=== PATIENT | female | born 1945 | race Caucasian/White ===

== ENCOUNTER 2021-09-17 12:58 | Emergency (ER) | payer MEDICARE, OTHER, SELFPAY ==
--- NOTE | ~2021-09-17 | XR_ITS ---
EXAMINATION: XR HAND, LEFT CLINICAL INFORMATION: Trauma. Pain and swelling. COMPARISON: None TECHNIQUE: PA, lateral, and oblique views of the left hand. FINDINGS: Bone alignment is normal. No fracture or dislocation is seen. There is soft tissue swelling over the metacarpal heads/MCP joints. There is mild arthritis at the first CHCF joint. XR/XR hand LT min 3V IMPRESSION: Soft tissue swelling over the metacarpal head/MCP joints. Mild arthritis at the first CHCF joint.
[2021-09-17 13:06] VITALS: BP 140/62; PULSE 81; RESP 18; TEMP 36.6; O2SAT 98; BMI 19.2
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
== END 2021-09-17 15:49 | disposition home or self-care (01) ==
LOC: HO.ED 15:43
PROVIDERS: Emergency Provider Emergency Medicine; PCP Internal Medicine
DX: S60.222A Contusion of left hand, initial encounter (principal); Y29.XXXA Contact with blunt object, undetermined intent, initial encounter; Y93.9 Activity, unspecified; Y92.9 Unspecified place or not applicable; Y99.9 Unspecified external cause status
CPT/HCPCS: 73130; 99282

== ENCOUNTER 2023-08-20 11:03 | Outpatient (AMB) | payer MEDICARE, OTHER, SELFPAY ==
--- NOTE | 2023-08-20 11:14 | HO.SPINEOV ---
Intake Visit Reasons: myelopathic Intake Note: Ms. Patel is here today c/o neck/shoulder pain. 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 She is a very nice 77-year-old female with history of AFib on Xarelto, who presents with 1 month or more of severe right arm pain going down into her hand as well as balance issues. She does not report any neck pain. She does report some issues with fine motor movements of her hands not being quite as good. She underwent an MRI after series of x-rays and this showed severe compression of her spinal cord at C5-6 and C6-7. She was sent to our office urgently for evaluation. PMH: She has a history of coronary disease and underwent a triple bypass in 2020. She did well after that surgery it improved her symptoms of shortness of breath. She has been followed by postoperatively. Her last echocardiogram showed that her EF was 60-65%, with normal left ventricular wall thickness and normal right ventricular wall thickness. She had a mildly dilated left and right atrium. Mild mitral regurgitation and moderate tricuspid regurgitation. PA pressures were normal. She has a history of AFib and SVT. She is managed on metoprolol, digoxin. She had a left carotid endarterectomy done about 2 years ago and did well after that. Her [facility] records state that she has COPD, she did quit smoking about 8 years ago but does not need any inhalers and has had no shortness of breath. History of osteoporosis. Social hx: She quit smoking about 8 years ago, she occasionally will drink of beer or smoke a joint with her friends. Medications: Tylenol, Xarelto, metoprolol, gabapentin, digoxin, atorvastatin, amlodipine, calcium, vitamin-D, baby aspirin Allergies: Denies any drug allergies Physical exam: She is awake alert oriented no acute distress, she has weakness of both of her hands which I would rate as 4-5 and weakness of both iliopsoas which I would rate as 4-5. The rest of her motor examination is normal. She is diffusely hyperreflexic with Katlyn sign. Tandem gait walking reveals she is very unsteady. Imaging review: Cervical MRI done at [facility] shows severely collapsed disc at C5-6 and C6-7 with severe spinal cord compression with cord signal change at these levels. Impression: [age]-year-old female presents to the office today for evaluation of severe spinal cord compression at C5-6 and C6-7 in the setting of right arm pain, hand weakness and gait instability. I showed her her imaging, had a lengthy discussion with her about the fact that this is something that should be treated with surgery. Typically Dr. Chao would choose an anterior cervical approach, doing anterior cervical fusion at both C5-6 and C6-7. She understands that the timing of the surgeries important because any progression of symptoms could be irreversible. I am going to review her imaging with him and get back to her with a final plan. We talked about the fact that there may already be spinal cord damage and that this current set of symptoms she has maybe permanent but we would expect there would be some improvement after surgery hopefully. The 1st objective would be to prevent her from getting worse and losing any functional abilities. She would need to be off his Xarelto for 3 days before surgery and 3 days afterwards. Obviously there is some small risk for stroke. She would also need to be off her baby aspirin for 1 week. She will talk to Dr. Pradhan about getting a clearance note. Pt was given risk and benefits of surgery including but not limited to infection, hematoma , nerve injury,durotomy, weakness,bowel/bladder injury, persistent pain, dysphagia, vocal hoarseness as well as the option to continue with conservative treatment and patient wishes to proceed with surgery. Pt is aware they should stop their motrin, aspirin 7 days prior to surgery. All questions were answered to the best of our ability. If there is anything about this patients medical history that we have overlooked or concerns you have about us proceeding with surgery we would appreciate any input you can offer. Thank you for allowing us to care for your patient. The total time spent with this visit with this patient was 45 minutes reviewing history, physical exam, cervical imaging review, and implementation of treatment plan or further diagnostic testing Mynor Chao MD,PhD [facility] Coding Level of Care Code New Pt Level 4 (62213) Diagnoses Cervical myelopathy G95.9
== END 2023-08-20 11:42 | disposition home or self-care (01) ==
PROVIDERS: PCP Internal Medicine; Referring Provider Physician Assistant; Visit Provider Physician Assistant
DX: G95.9 Disease of spinal cord, unspecified (principal)
CPT/HCPCS: 99204

== ENCOUNTER → 2023-08-20 11:03 | Outpatient (BNVA) | payer MEDICARE, OTHER, SELFPAY | PROVIDERS: PCP Internal Medicine; Visit Provider Physician Assistant | DX: G95.20 Unspecified cord compression (principal) | CPT/HCPCS: 99202 ==

== ENCOUNTER 2023-10-25 14:47 | Outpatient (AMB) | payer MEDICARE, OTHER, SELFPAY ==
--- NOTE | 2023-10-25 14:53 | A.SPINEOV_ITS ---
Intake Visit Reasons: Discuss Surgery Intake Note: Ms. Patel is here today to discuss surgery. 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 She is scheduled to undergo an anterior diskectomy and fusion C5-6 and C6-7 on 10/30/2023. She is cleared for surgery by primary care physician. He did notice anemia for which he will undergo further testing but this should not interfere with the planned surgery. We went over the procedure and expected postoperative course. All questions were answered satisfactorily. Kurt Chao MD, PhD Spine Fellowship Trained Neurosurgeon Director, [facility] Coding Level of Care Code Est Pt Level 2 (26348) Diagnoses Cervical myelopathy G95.9
== END 2023-10-25 15:15 | disposition home or self-care (01) ==
PROVIDERS: PCP Internal Medicine; Visit Provider Neurological Surgery
DX: G95.9 Disease of spinal cord, unspecified (principal)
CPT/HCPCS: 99212

== ENCOUNTER → 2023-10-25 14:47 | Outpatient (BNVA) | payer MEDICARE, OTHER, SELFPAY | PROVIDERS: PCP Internal Medicine; Visit Provider Neurological Surgery | DX: G95.9 Disease of spinal cord, unspecified (principal) | CPT/HCPCS: 99212 ==

== ENCOUNTER 2023-10-30 07:39 | Day surgery (SDC) | payer MEDICARE, OTHER, SELFPAY ==
[2023-10-16 10:08] VITALS: BMI 16.8
[2023-10-16 10:17] VITALS: BP 169/73; PULSE 47; RESP 16; O2SAT 100
--- NOTE | 2023-10-16 10:37 | P.CONAN_ITS ---
Documented by User: Bernie See NP 10/29/23 08:59 HPI - Anesthesia Eval Consult details Narrative: 77yo F for C5-6,C6-7 Ant Cerv Discectomy w/ fusion with plate PCP defers to cardiology for preop optimization Optimized per cardiology No recent illness Some palps with exertion. No CP or LOMELI Afib. Xarelto CAD with NH s/p CABG x 3 2020 s/p L CEA 2021 Asthma/COPD. Stable without inhalers Post nasal drip PMFSH Active Problems Active Problems: All Active Problems Cervical myelopathy (Acute) Past Medical History Medical History Wears dentures Recent bereavement Spinal stenosis Arthritis History of blood transfusion History of cardioversion Hx of myocardial infarction [place] (hard of hearing) COPD (chronic obstructive pulmonary disease) SVT (supraventricular tachycardia) Hearing loss HFrEF (heart failure with reduced ejection fraction) PAF (paroxysmal atrial fibrillation) Osteoporosis Asthma HTN (hypertension) PVD (peripheral vascular disease) Family History Family history of problems with anesthesia: No Surgical History Surgical History Hx of bilateral cataract extraction History of bunionectomy of right great toe History of left-sided carotid endarterectomy (~2021) Hx of CABG (~2020) S/P EMMETT-BSO (total abdominal hysterectomy and bilateral salpingo-oophorectomy) Hx of colonoscopy Hx of breast biopsy History of Problems with Anesthesia: No Social History Social History Household Members: None Housing: House Are you a primary specialist wound care to a significant other at home: No Do you presently have visiting nurse or other home services: No Patient Tobacco Use Status: Former Tobacco user Tobacco use type: Cigarette Smoked in Last 30 Days: No Use of substances other than those prescribed or required for medical reasons: No Have you been hit, kicked, punched, or otherwise hurt by someone within the past year? If so, by whom?: No Are you DNR?: No Advance Directives: No Advance Directives Information Provided: Yes Advance Directives on File: No Recently lost weight without trying: Yes How much weight loss: 2-13 pounds Eating poorly because of decreased appetite: No Nutrition screen score: 3 Nutrition Risks: No Nutritional Risk Poor oral hygiene: No Meds Allergies Allergy/AdvReac Type Severity Reaction Status Date / Time No Known Allergies Allergy Verified 10/30/23 07:55 Home Medications ?Medication ?Instructions ?Recorded ?Confirmed ?Last Taken ?Type amlodipine 5 mg tablet 5 mg PO DAILY 10/15/23 10/15/23 10/30/23 05:30 History aspirin 81 mg chewable tablet 81 mg PO DAILY 10/15/23 10/15/23 10/23/23 History atorvastatin 40 mg tablet 40 mg PO BEDTIME 10/15/23 10/15/23 Unknown History cholecalciferol (vitamin D3) 50 50 mcg PO DAILY 10/15/23 10/15/23 Unknown History mcg (2,000 unit) capsule (Vitamin D3) diclofenac sodium 1 % topical gel 1 g topical BID 10/15/23 10/15/23 Unknown History digoxin 125 mcg (0.125 mg) tablet 125 mcg PO DAILY 10/15/23 10/15/23 10/30/23 05:30 History estradiol 0.01% (0.1 mg/gram) 1 g vaginal 3XW 10/15/23 10/15/23 Unknown History vaginal cream gabapentin 100 mg capsule 100 mg PO TID 10/15/23 10/15/23 10/30/23 05:30 History metoprolol succinate 50 mg 50 mg PO BID 10/15/23 10/15/23 10/30/23 05:30 History tablet,extended release 24 hr (Toprol XL) rivaroxaban 20 mg tablet (Xarelto) 20 mg PO DAILY 10/15/23 10/15/23 10/26/23 History Exam Height,Weight and Vital Signs: Height 5 ft 2 in Weight 41.6 kg Last Vital Signs Pulse 47 L 10/16/23 10:17 Resp 16 10/16/23 10:17 BP 169/73 H 10/16/23 10:17 Pulse Ox 100 10/16/23 10:17 O2 Del Method Room Air 10/16/23 10:17 Pertinent Lab Results Pertinent Lab Results: CBC and BMP from outside facility 10/14/23 OK except low H&H Narrative Narrative: Testing per cardiology clearance note: EKG 10/2023 afib @ 62 RBBB LAD ECHO 05/2022 EF 60-65% Nml RV function LA mild dilated RA mod dilated Mild mitral regurg Mod tricuspid regurg with nm PASP No change from 2020 Airway Mallampati Class: II (Small mouth) TM Dist: >3cm Neck ROM: Limited Denture: Upper Loose/Missing/Broken Teeth: Yes (Lower teeth posts in situ) Heart: Raimundo, irreg Lungs: CTAB Assessment and Plan Assessment Anesthesia Assessment: Anesthesia Plan Discussed and PAT Visit Final Anesthetic Review Family History of Problems with Anesthesia: No History of Problems with Anesthesia: No Documented by User: Rufina Camacho MD 10/30/23 09:42 PMFSH Past Medical History Medical History Wears dentures Recent bereavement Spinal stenosis Arthritis History of blood transfusion History of cardioversion Hx of myocardial infarction [place] (hard of hearing) COPD (chronic obstructive pulmonary disease) SVT (supraventricular tachycardia) Hearing loss HFrEF (heart failure with reduced ejection fraction) PAF (paroxysmal atrial fibrillation) Osteoporosis Asthma HTN (hypertension) PVD (peripheral vascular disease) Surgical History Surgical History Hx of bilateral cataract extraction History of bunionectomy of right great toe History of left-sided carotid endarterectomy (~2021) Hx of CABG (~2020) S/P EMMETT-BSO (total abdominal hysterectomy and bilateral salpingo-oophorectomy) Hx of colonoscopy Hx of breast biopsy Social History Social History Household Members: None Housing: House Are you a primary specialist wound care to a significant other at home: No Do you presently have visiting nurse or other home services: No Patient Tobacco Use Status: Former Tobacco user Tobacco use type: Cigarette Smoked in Last 30 Days: No Use of substances other than those prescribed or required for medical reasons: No Have you been hit, kicked, punched, or otherwise hurt by someone within the past year? If so, by whom?: No Are you DNR?: No Advance Directives: No Advance Directives Information Provided: Yes Advance Directives on File: No Recently lost weight without trying: Yes How much weight loss: 2-13 pounds Eating poorly because of decreased appetite: No Nutrition screen score: 3 Nutrition Risks: No Nutritional Risk Poor oral hygiene: No Meds Allergies Allergy/AdvReac Type Severity Reaction Status Date / Time No Known Allergies Allergy Verified 10/30/23 07:55 Home Medications ?Medication ?Instructions ?Recorded ?Confirmed ?Last Taken ?Type amlodipine 5 mg tablet 5 mg PO DAILY 10/15/23 10/15/23 10/30/23 05:30 History aspirin 81 mg chewable tablet 81 mg PO DAILY 10/15/23 10/15/23 10/23/23 History atorvastatin 40 mg tablet 40 mg PO BEDTIME 10/15/23 10/15/23 Unknown History cholecalciferol (vitamin D3) 50 50 mcg PO DAILY 10/15/23 10/15/23 Unknown History mcg (2,000 unit) capsule (Vitamin D3) diclofenac sodium 1 % topical gel 1 g topical BID 10/15/23 10/15/23 Unknown History digoxin 125 mcg (0.125 mg) tablet 125 mcg PO DAILY 10/15/23 10/15/23 10/30/23 05:30 History estradiol 0.01% (0.1 mg/gram) 1 g vaginal 3XW 10/15/23 10/15/23 Unknown History vaginal cream gabapentin 100 mg capsule 100 mg PO TID 10/15/23 10/15/23 10/30/23 05:30 History metoprolol succinate 50 mg 50 mg PO BID 10/15/23 10/15/23 10/30/23 05:30 History tablet,extended release 24 hr (Toprol XL) rivaroxaban 20 mg tablet (Xarelto) 20 mg PO DAILY 10/15/23 10/15/23 10/26/23 History Assessment and Plan Final Anesthetic Review NPO: Yes ASA Class: III Final Preanesthetic Review: No Changes in Pt Med Stat, Meds/Allgs Chart Reviewed, Consent Obtained/Reviewed and Anes Risks/Benef Reviewed Patient Risk: Intermediate Procedure Risk: Intermediate Anesthetic Plan Anesthetic Plan: GA Disposition: Standard PACU
[2023-10-30] VITALS (9 sets, daily range): BP systolic 129–182; BP diastolic 49–90; PULSE 54–72; RESP 12–17; TEMP 36–36.8; O2SAT 95–100; BMI 16.5; BMI 18.7
--- NOTE | ~2023-10-30 | FL_ITS ---
CLINICAL INDICATION: None provided. FINDINGS: Technical assistance and equipment were provided by the Department of Radiology during intraoperative fluoroscopy for intraoperative ACDF. 2, limited fluoroscopic spot images are submitted. A radiologist was not present during the procedure. Images demonstrate anterior fixation and disc spacing devices at C5-C7. Vertebral body heights and alignment appear grossly maintained on this limited study. Multiple surgical clips project over the left neck. The images are available for review on PACS. TOTAL FLUOROSCOPY TIME: 5 seconds. DOSE AREA PRODUCT: 0.1 Gy-cm2 (menon-centimeter squared) FL/FL guidance in OR IMPRESSION: Technical assistance and equipment provided by the Department of Radiology during intraoperative fluoroscopy, as above. Please see operative report for further details. Electronically signed by: Juventino Fontaine MD 10/30/2023 07:00 PM EDT
--- OUTSIDE RECORDS SUMMARY | 2023-10-30 07:41 | XMS_ITS | Continuity of Care Document ---
Author Organization [facility] Card[facility] David alfie Address [address] [address]- Care Team Providers Care Veterinary Laboratory Diagnostician Name Role Phone Lorne BARKSDALE MD, Chris Laws Primary Care Physician Encounter [facility] Date(s): 06/23/20 - 07/23/20 [facility] Surgery [address] [facility] Room [address] [place] [id number] Allergies, Adverse Reactions, Alerts Substance Reaction Severity Status NKA Active Medications amLODIPine 5 mg oral tablet 5 mg, 1, tablet, By Mouth, Daily, # 90 tablet, Refills 3, Tot. Refills 3, Maintenance, 06/23/20 13:46:00 EDT, Route to Pharmacy Electronically, [facility] , Partial fill upon patient requestif the prescription is for a schedule II opioid lily... Start Date: 06/23/20 Status: Ordered Aspirin Tablet 81 mg, By Mouth, Daily, Refills 0, Maintenance, 06/14/20 10:56:00 EDT, Partial fill upon patient request if the prescription is for a schedule II opioid drug. Start Date: 06/14/20 Status: Ordered atorvastatin 40 mg oral tablet 1 tablet = 40 mg, By Mouth, Daily at bedtime, for 90 days, # 90 tablet, 3 Refills, Hard Stop 06/18/21 13:38:00 EDT, 06/23/20 13:38:00 EDT, Tablet, Partial fill upon patient request if the prescription is for a schedule II opioid drug. Start Date: 06/23/20 Stop Date: 06/18/21 Status: Ordered atorvastatin 40 mg oral tablet 1 tablet = 40 mg, By Mouth, Daily at bedtime, # 90 tablet, 3 Refills, Maintenance, 06/18/21 13:38:00 EDT, Tablet, [facility] , Partial fill upon patient request if the prescription is for a schedule II opioid drug., 157, cm, 06/23/20 10:57:00... Start Date: 06/18/21 Stop Date: 06/13/22 Status: Ordered digoxin 0.125 mg oral tablet 0.125 mg, By Mouth, Daily, # 90 tablet, Refills 3, Tot. Refills 3, Maintenance, 06/23/20 13:45:00 EDT, Route to Pharmacy Electronically, [facility], 157, cm, 06/23/20 10:57:00 EDT, Height, 50, kg, 08/06/18 15:37:00 EDT, Dry Weight Start Date: 06/23/20 Status: Ordered Fosamax 70 mg oral tablet 1 tablet = 70 mg, By Mouth, Every week, # 4 tablet, 0 Refills, Maintenance, 08/06/18 15:59:31 EDT, Tablet Start Date: 08/06/18 Status: Ordered metoprolol 25 mg oral tablet 25 mg, 1, tablet, By Mouth, Every 8 hours, for 90 days, # 270 tablet, Refills 3, Tot. Refills 3, Hard Stop 06/18/21 13:38:00 EDT, 06/23/20 13:38:00 EDT, Print Requisition, Partial fill upon patient request if the prescription is for a schedule II opio... Start Date: 06/23/20 Stop Date: 06/18/21 Status: Ordered metoprolol 25 mg oral tablet 25 mg, 1, tablet, By Mouth, Every 8 hours, # 270 tablet, Refills 3, Tot. Refills 3, Maintenance, 06/18/21 13:38:00 EDT, Route to Pharmacy Electronically, [facility], Partial fill upon patient request if the prescription is for a schedule II... Start Date: 06/18/21 Stop Date: 06/13/22 Status: Ordered Tylenol 325 mg oral tablet 975 mg, 3, tablet, By Mouth, Every 6 hours, PRN, Refills 0, Maintenance, Pain , Moderate, 06/14/20 10:56:00 EDT, Partial fill upon patient request if the prescription is for a schedule II opioid drug. Start Date: 06/14/20 Status: Ordered Xarelto 20 mg oral tablet 1 tablet = 20 mg, By Mouth, Daily at supper, # 30 tablet, 0 Refills, Maintenance, 08/06/18 15:59:08EDT, Tablet Start Date: 08/06/18 Status: Ordered Problem List Condition Effective Dates Status Health Status Inform ant Afib(Confirmed) Active Coronary atherosclerosis due to calcified coronary lesion(Confirmed) Active COPD (chronic obstructive pu lmonary disease)(Confirmed) Active HTN (hypertension)(Confirmed) Active Osteoporosis(Confirmed) Active Takotsubo cardiomyopathy(Confirmed) Active
--- OUTSIDE RECORDS SUMMARY | 2023-10-30 07:41 | XMS_ITS | Continuity of Care Document ---
Author Organization [facility] ter Address [address] [place] [id number]- Care Team Providers Care Sustainability Coach Name Role Phone Chris Pradhan III, MD Primary Care Physician Encounter [facility] [place] Date(s): 07/19/20 - 11/18/[address] [address]- Encounter Diagnosis Atherosclerotic heart disease of [place] coronary artery without angina pectoris (Final) - Discharge Disposition: A-D/C Home Attending Physician: Jason Biggs MD Admitting Physician: Jason Biggs MD Referring Physician: Jason Biggs MD Allergies, Adverse Reactions, Alerts Substance Reaction Severity Status NKA Active Medications amLODIPine 5 mg oral tablet 5 mg, 1, tablet, By Mouth, Daily, # 90 tablet, Refills 3, Tot. Refills 3, Maintenance, 06/23/20 13:46:00 EDT, Route to Pharmacy Electronically, [facility] , Partial fill upon patient requestif the prescription is for a schedule II opioid lily... Start Date: 06/23/20 Status: Ordered aspirin 81 mg oral delayed release tablet 81 mg, 1, tablet, By Mouth, Daily, Refills 0, Maintenance, 10/21/20 10:04:00 EDT, Partial fill uponpatient request if the prescription is for a schedule II opioid drug. Start Date: 10/21/20 Status: Ordered atorvastatin 40 mg oral tablet 1 tablet = 40 mg, By Mouth, Daily at bedtime, for 90 days, # 90 tablet, 3 Refills, Hard Stop 06/18/21 13:38:00 EDT, 06/23/20 13:38:00 EDT, Tablet, Partial fill upon patient request if the prescription is for a schedule II opioid drug. Start Date: 06/23/20 Stop Date: 06/18/21 Status: Ordered digoxin 0.125 mg oral tablet 0.125 mg, By Mouth, Daily, # 90 tablet, Refills 3, Tot. Refills 3, Maintenance, 06/23/20 13:45:00 EDT, Route to Pharmacy Electronically, [facility], 157, cm, 06/23/20 10:57:00 EDT, Height, 50, kg, 08/06/18 15:37:00 EDT, Dry Weight Start Date: 06/23/20 Status: Ordered gabapentin 300 mg oral capsule 300 mg, 1, capsule, By Mouth, Daily at bedtime, Refills 0, Maintenance, 10/28/20 6:45:00 EDT, Partial fill upon patient request if the prescription is for a schedule II opioid drug. Start Date: 10/28/20 Status: Ordered metoprolol 25 mg oral tablet 25 mg, 1, tablet, By Mouth, Every 8 hours, # 270 tablet, Refills 3, Tot. Refills 3, Maintenance, 06/18/21 13:38:00 EDT, Route to Pharmacy Electronically, [facility], Partial fill upon patient request if the prescription is for a schedule II... Start Date: 06/18/21 Stop Date: 06/13/22 Status: Ordered Plavix 75 mg oral tablet 75 mg, 1, tablet, By Mouth, Daily, # 30 tablet, Refills 0, Tot. Refills 0, Maintenance, 10/21/20 10:03:00 EDT, Route to Pharmacy Electronically, [id number], Partial fill upon patientrequest if the prescription is for a schedule II op... Start Date: 10/21/20 Status: Ordered Tylenol 325 mg oral tablet [...]
--- OUTSIDE RECORDS SUMMARY | 2023-10-30 07:41 | XMS_ITS | Continuity of Care Document ---
Author Organization [facility] Address [address] [place] [address]- Care Team Providers Care Physical Therapist Clinic Director Name Role Phone Lorne BARKSDALE MD, Chris Laws Primary Care Physician [place] [facility] [place] Date(s): 03/12/23 - 03/19/23 [facility] [address] [place] [address]- Attending Physician: Libertad Fernandes NP Admitting Physician: Libertad Fernandes NP Allergies, Adverse Reactions, Alerts No Known Allergies Medications amLODIPine 5 mg oral tablet 5 [...] opioid drug. Start Date: 10/21/20 Status: Ordered digoxin 0.125 mg oral tablet 0.125 mg, By Mouth, Daily, # 90 tablet, Refills 3, Tot. Refills 3, Maintenance, 06/23/20 13:45:00 EDT, Route to Pharmacy Electronically, [facility] , 157, cm, 06/23/20 10:57:00 EDT, Height, 50, [...] Date: 08/06/18 Status: Ordered Problem List Condition Confirmation Course Effective Dates Status H ealth Status Informant Afib Confirmed Active Coronary atherosclerosis due to calcified coronary lesion Confirmed Active COPD (chronic obstructive pulmonary disease) Confirmed Active HTN (hypertension) Confirmed Active Osteoporosis Confirmed Active Takotsubo cardiomyopathy Confirmed Active Underweight Confirmed Active Vital Signs Most recent to oldest [Reference Range]: 1 2 Height 158 cm (03/12/23 8:18 AM) 158 cm (03/12/23 8:17 AM) Weight 42.27 kg (03/12/23 8:17 AM) Oxygen Saturation [94-100 %] 96 % (03/12/23 8:17 AM) Pulse Rate [55-90 bpm] 46 bpm *L* (03/12/23 8:17 AM) Body Mass Index [18.5-24.99 kg/m2] 16.93 kg/m2 *L* (03/12/23 8:17 AM) Blood Pressure [90-138/55-84 mm Hg] 148/ 62mm Hg *H* (03/12/23 8:18 AM) 154/60mm Hg *H* (03/12/23 8:17 AM) Blood pressure sites Arm, right (03/12/23 8:18 AM) Arm, left (03/12/23 8:17 AM) Weight Obtained Via Patient/family state d (03/12/23 8:17 AM) Social History Social History Type Response Smoking Status Never (less than 100 in lifetime) entered on: 03/12/23 Sex Note * Paulina Garcia: PERFORM, SIGN, VERIFY Event Display: Patient Education/Instruction Authored Date: [id number] [facility] *[facility] [address] Clinical Summary Name FRANCISCO MERCER Age 77 Years 1945 PCP Lorne BARKSDALE MD, Chris Laws PCP Visit Date 03/12/2023 08:07:00 Additional Instructions: Scheduled Appointments?? Future Appointments ?No Future Appointments Scheduled Follow-Up Instructions ?? With: Address: When: Dom BLANCHARD, Libertad B Comments: 1 year carotid scan office visit here prior left carotid endarterectomy Diagnosis Medications: Please continue your medications until treatment is completed or stopped by your provider. Discuss any questions related to medications with your provider. Medications to Continue with No Changes These medications were not printed or sent to your pharmacy Acetaminophen (Tylenol 325 mg oral tablet) 3 tab(s) Oral every 6 hours as needed Pain , Moderate. Next Dose: Amlodipine (amLODIPine 5 mg oral tablet) 1 tab(s) Oral Daily. Refills: 3. Next Dose: Aspirin (aspirin 81 mg oral delayed release tablet) 1 tab(s) Oral Daily. Next Dose: Digoxin (digoxin 0.125 mg oral tablet) 0.125 Milligram Oral Daily. Refills: 3. Next Dose: Gabapentin (gabapentin 300 mg oral capsule) 1 capsule Oral Daily at Bedtime. Next Dose: Metoprolol (metoprolol 25 mg oral tablet) 1 tab(s) Oral every 8 hours for 90 Days. Refills: 3. Next Dose: rivaroxaban (Xarelto 20 mg oral tablet) 1 tab(s) Oral Daily at supper. Next Dose: Allergy Info:?? NKA Medications Given This Visit Future Orders ?VL Carotid Duplex Bilat Scan? Order Date:03/12/23?- Complete within?12 months Vital Signs Height 158 cm Weight 42.27 kg BMI 16.93 kg/m2 Blood Pressure 148 mm Hg/62 mm Hg Temperature Pulse Rate 46 bpm Respiratory Rate 02 Sat Mode of Delivery 96 %/ You can now view a summary of your hospital visit from the comfort of your home through a free online portal called [employer]. [employer] is a website that allows you to securely view your medical information including discharge summary, medications and follow-up visits. ??You can alsosend a secure electronic message to your doctor???s office to request appointments, renew medications or just ask a question. You can enroll at [email or web address] or register during your next office visit. Disclaimer:?? The information provided is of a general nature and is intended to be used in conjunction with the recommendations and advice of your health care practitioner. ??Every effort has been made to ensure that the information provided is accurate and complete at the time it is provided to you however, as your needs change, or, as new ??information becomes available, different or additional instructions may be required. If you have questions, please consult with your primary care provider or pharmacist, as appropriate. ??This information is not intended to serve as substitution for assessment and evaluation by a qualified health care provider. If you do not have a primary care provider, you may find a [facility] provider by calling [facility] [employer] Link at [phone]. [facility], in keeping with [facility] guidance, no longer requires face masks for staff, patientsor visitors in most situations. Similar to time spent indoors at other locations, there is the chance that you were exposed to respiratory viruses during your time with us (such as flu or COVID-19).? If you develop symptoms concerning for a viral respiratory infection, please seek testing (and treatment if indicated) from your medical provider or home test kit. For information about the plan of care including goals and instructions for your diagnosis, please see the patient education orders section of this document. Patient Education Materials?? The content of this educational material or handout may have been modified, supplemented, or adapted from its original content and format to support your individualized medical care. Patient Care team information Care Team Personnel Name: Monse Mcclendon RN Position: S RN Member Role: Primary Care Nurse Name: Chris Pradhan III, MD Position: Reference Physician Member Role: PCP Address: Address: [address] [place] [id number] Name: Chelsi Santos RN Position: Glendy THOMAS RN Member Role: Primary Care Nurse Care Team Related Persons Name: KARLA MERCER Address: [address] [address]
--- OUTSIDE RECORDS SUMMARY | 2023-10-30 07:41 | XMS_ITS | Continuity of Care Document ---
Author Organization [facility] Address [address] [place] [address]- Care Team Providers Care Cup Machine Operator Name Role Phone Lorne BARKSDALE MD, Chris Laws Primary Care Physician Encounter [facility] [place] Date(s): 03/12/23 - 04/11/23 [facility] [address] [place] [address]- Attending Physician: Emely Gipson Admitting Physician: Admtr, [id number] Referring Physician: Admtr, Ar8 Allergies, Adverse Reactions, Alerts No Known Allergies Medications amLODIPine 5 mg oral tablet 5 mg, 1, tablet, By Mouth, Daily, # 90 tablet, Refills 3, Tot. Refills 3, Maintenance, 06/23/20 13:46:00 EDT, Route to Pharmacy Electronically, [facility], Partial fill upon patient requestif the prescription [...] Takotsubo cardiomyopathy Confirmed Active Underweight Confirmed Active Social History Social History Type Response Smoking Status Never (less than 100 in lifetime) entered on: 03/12/23 Sex Patient Care team information Care Team Personnel Name: Monse Mcclendon RN Position: S RN Member Role: Primary Care Nurse Name: Chris Pradhan III, MD Position: Reference Physician Member Role: PCP Address: Address: [address] [place] [address]- Name: Chelsi Santos RN Position: Glendy THOMAS RN Member Role: Primary Care Nurse Care Team Related Persons Name: SYLVIE KARLA Address: home [address] [place] [id number]
--- OUTSIDE RECORDS SUMMARY | 2023-10-30 07:41 | XMS_ITS | Continuity of Care Document ---
Author Organization [facility] ter Address [address] [place] [address]- Care Team Providers Care Software Quality Manager Name Role Phone Chris Pradhan III, MD Primary Care Physician [place] [facility] [place] - 07/06/[address] [address]- Attending Physician: Not on Staff, Attending MD Admitting Physician: Not on Staff, Admitting MD Referring Physician: Not on Staff, Referring MD Allergies, Adverse Reactions, Alerts Substance Reaction [...]
--- OUTSIDE RECORDS SUMMARY | 2023-10-30 07:41 | XMS_ITS | Continuity of Care Document ---
Author Organization [facility] Address [address] [place] [address]- Care Team Providers Care Head Batcher Name Role Phone Chris Pradhan III, MD Primary Care Physician Encounter [facility] [place] Date(s): 10/31/20 - 11/30/20 [facility] [address] [place] [address]- Allergies, Adverse Reactions, Alerts Substance Reaction Severity [...] 10/21/20 10:03:00 EDT, Route to Pharmacy Electronically, [facility] #[id number], Partial fill upon patientrequest if the prescription [...]
--- OUTSIDE RECORDS SUMMARY | 2023-10-30 07:41 | XMS_ITS | Continuity of Care Document ---
Author Organization [facility] Address [address] [place] [address]- Care Team Providers Care Angiography Technologist Name Role Phone Chris Pradhan III, MD Primary Care Physician [phone] Encounter [facility] [place] Date(s): 09/01/20 - 09/08/20 [facility] [address] [place] [address]- Attending Physician: Marino Jenkins MD Admitting Physician: Marino Jenkins MD Referring Physician: Chris Pradhan III, MD Allergies, Adverse Reactions, Alerts Substance Reaction [...] (hypertension)(Confirmed) Active Osteoporosis(Confirmed) Active Takotsubo cardiomyopathy(Confirmed) Active Vital Signs Most recent to oldest [Reference Range]: 1 Height 157 cm (09/01/20 2:50 PM) Oxygen Saturation [94-100 %] 98 % (09/01/20 2:50 PM) Pulse Rate [55-90 bpm] 77 bpm (09/01/20 2:50 PM) Blood Pressure [90-138/55-84 mm Hg] 112/ 60mm Hg (09/01/20 2:50 PM) Mode of Delivery (Oxygen) Room air (09/01/20 2:50 PM) Blood pressure sites Arm, right (09/01/20 2:50 PM)
--- OUTSIDE RECORDS SUMMARY | 2023-10-30 07:41 | XMS_ITS | Continuity of Care Document ---
Author Organization [facility] Address [address] [address]- Care Team Providers Care Circular Knitter Name Role Phone Lorne BARKSDALE MD, Chris Laws Primary Care Physician [phone] [place] [facility] [place]20 - 07/23/20 [facility] [address] [place] [address] Attending Physician: Emely Gipson Admitting Physician: Admtr, Emely Referring Physician: Admtr, Ar8 Allergies, Adverse Reactions, Alerts Substance Reaction Severity [...]
--- OUTSIDE RECORDS SUMMARY | 2023-10-30 07:41 | XMS_ITS | Continuity of Care Document ---
Author Organization [facility] ter Address [address] [place] [address]- Care Team Providers Care Delivery Truck Driver Heavy Name Role Phone Lorne BARKSDALE MD, Chris Laws Primary Care Physician [place] [facility] [place]28/20 - 10/29/[address] [id number] Discharge Disposition: A-D/C Home Attending Physician: Marino Jenkins MD Admitting Physician: Marino Jenkins MD Referring Physician: Marino Jenkins MD Allergies, Adverse Reactions, Alerts Substance Reaction Severity Status NKA Active Medications amLODIPine 5 mg oral tablet 5 mg, 1, tablet, By Mouth, Daily, # 90 tablet, Refills 3, Tot. Refills 3, Maintenance, 06/23/20 13:46:00 EDT, Route to Pharmacy Electronically, [facility] , Partial fill upon patient [...] Date: 06/18/21 Stop Date: 06/13/22 Status: Ordered metoprolol 25 mg oral tablet 25 mg, Tablet, By Mouth, 10/29/20 5:00:00 EDT Start Date: 10/29/20 Stop Date: 10/29/20 Status: Completed Plavix 75 mg oral tablet 75 mg, 1, tablet, By Mouth, Daily, # 30 tablet, Refills 0, Tot. Refills 0, Maintenance, 10/21/20 10:03:00 EDT, Route to Pharmacy Electronically, [facility] #[id number], Partial fill upon patientrequest if the prescription [...] recent to oldest [Reference Range]: 1 2 3 Height 158 cm (10/29/20 4:08 AM) 158 cm (10/28/20 11:15 PM) 158 cm (10/28/20 7:37 PM) Weight 42.8 kg (10/28/20 3:35 PM) 42.2 kg (10/28/20 6:59 AM) Oxygen Saturation [94-100 %] 100 % (10/29/20 7:20 AM) 100 % (10/29/20 4:08 AM) 98 % (10/28/20 11:15 PM) Pulse Rate [55-90 bpm] 94 bpm *H* (10/29/20 7:20 AM) 102 bpm *H* (10/29/20 5:13 AM) 102 bpm *H* (10/29/20 4:08 AM) Body Mass Index [18.5-24.99] 17.14 *L* (10/28/20 3:35 PM) 16.9 *L* (10/28/20 6:59 AM) Blood Pressure [90-138/55-84 mm Hg] 142/62mm Hg *H* (10/29/20 7:20 AM) 143/66mm Hg *H* (10/29/20 5:13 AM) 143/66mm Hg *H* (10/29/20 4:08 AM) Respiratory Rate [16-30 br/min] 16 br/min (10/29/20 7:20 AM) 18 br/min (10/29/20 4:08 AM) 18 br/min (10/28/20 11:15 PM) Temperature [96.8-100.4 DegF] 98.6 DegF (10/29/20 7:20 AM) 98.2 DegF (10/29/20 4:08 AM) 98.4 DegF (10/28/20 11:15 PM) Liters per Minute 2 L/min (10/28/20 1:15 PM) 2 L/min (10/28/20 1:00 PM) 2 L/min (10/28/20 12:45 PM) Mode of Delivery (Oxygen) Room air (10/29/20 7:20 AM) Room air (10/29/20 4:08 AM) Room air (10/28/20 11:15 PM) Blood pressure sites Arm, right (10/29/20 7:20 AM) Arm, right (10/29/20 4:08 AM) Arm, right (10/28/20 11:15 PM) Temperature Route Oral (10/29/20 7:20 AM) Oral (10/29/20 4:08 AM) Oral (10/28/20 11:15 PM) Dry Weight 42.8 kg (10/28/20 3:35 PM) Weight Obtained Via Bed scale (10/28/20 3:35 PM) Standing scale (10/28/20 6:59 AM)
--- OUTSIDE RECORDS SUMMARY | 2023-10-30 07:41 | XMS_ITS | Continuity of Care Document ---
Author Organization [facility] ter Address [address] [place] [address]- Care Team Providers Care Airport Refueling Handler Name Role Phone Lorne BARKSDALE MD, Chris Laws Primary Care Physician Encounter [facility] Date(s): 06/01/20 - 06/14/[address] [address]- Discharge Disposition: A-Transfer SNF Attending Physician: Jason Biggs MD Admitting Physician: Cheryl Cevallos MD Referring Physician: Cheryl Cevallos MD Allergies, Adverse Reactions, Alerts Substance Reaction Severity Status NKA Active Medications amLODIPine 5 mg oral tablet 5 mg, 1, tablet, By Mouth, Daily, Refills 0, Maintenance, 06/14/20 10:56:00 EDT, Partial fill upon patient request if the prescription is for a schedule II opioid drug. Start Date: 06/14/20 Status: Ordered amLODIPine 5 mg oral tablet 5 mg, Tablet, By Mouth, 06/14/20 9:00:00 EDT Start Date: 06/14/20 Stop Date: 06/14/20 Status: Completed Aspirin Tablet 81 mg, By Mouth, Daily, Refills 0, Maintenance, 06/14/20 10:56:00 EDT, Partial fill upon patient request if the prescription is for a schedule II opioid drug. Start Date: 06/14/20 Status: Ordered atorvastatin 40 mg oral tablet 1 tablet = 40 mg, By Mouth, Daily at bedtime, 0 Refills, Maintenance, 06/14/20 10:56:00 EDT, Tablet, Partial fill upon patient request if the prescription is for a schedule II opioid drug. Start Date: 06/14/20 Status: Ordered digoxin 0.125 mg oral tablet 0.125 mg, By Mouth, Daily, # 30 tablet, Refills 1, Tot. Refills 1, Maintenance, 08/11/18 10:57:00 EDT, Route to Pharmacy Electronically, [id number], [facility] Start Date: 08/11/18 Status: Ordered Fosamax 70 mg oral tablet 1 tablet = 70 mg, By Mouth, Every week, # 4 tablet, 0 Refills, Maintenance, 08/06/18 15:59:31 EDT, Tablet Start Date: 08/06/18 Status: Ordered metoprolol 25 mg oral tablet 25 mg, 1, tablet, By Mouth, Every 8 hours, Refills 0, Maintenance, 06/14/20 10:56:00 EDT, Partial fill upon patient request if the prescription is for a schedule II opioid drug. Start Date: 06/14/20 Status: Ordered Metoprolol IR Tablet 25 mg, Tablet, By Mouth, When extubated, HOLD for HR less than 70 or SBP less than 100 or if on Vasopressors, 06/14/20 4:00:00 EDT Start Date: 06/14/20 Stop Date: 06/14/20 Status: Completed Tylenol 325 mg oral tablet 975 mg, [...] (hypertension)(Confirmed) Active Osteoporosis(Confirmed) Active Takotsubo cardiomyopathy(Confirmed) Active Results Radiology Reports * Exam Date Time Procedure Performing Provider Status 06/04/20 6:19 AM Chest Portable Jayla Valladares; Auth (Verified) Notes: (Chest Portable) Reason For Exam: S/P Cardiac Surgery RESULT: Chest Portable Chest Portable Reason: S P Cardiac Surgery; Clinical Question(s): Postop COMPARISON: Yesterday and the day before. FINDINGS: LINES AND TUBES: ET tube and NG tube have been removed. Left basilar thoracotomy tube, right jugular Ozawkie-Hanna catheter tip unchanged over the main pulmonary artery. 2 mediastinal drainage catheters are unchanged. LUNGS AND PLEURA: Increased mild bibasilar opacity and probable small effusions. Cindy B lines at the right lung base are probably due to mild interstitial edema. No pneumothorax. HEART, MEDIASTINUM AND AMISHA: Unchanged. No new cardiomegaly or mediastinal widening. BONES AND SOFT TISSUES: No acute abnormality. IMPRESSION: 1. New small effusions and adjacent bibasilar opacity. 2. Mild interstitial edema. 3. ET tube and NG tube removed. WSN: [id number] Ordering Physician: Ivana Mehta Dictated By: Neptali Pinto MD Dictated Date/Time: 06/04/20 9:19 am Reviewed By: Neptali Pinto MD Signed By: Neptali Pinto MD Signed Date/Time: 06/04/20 9:19 am Transcribed By: CHAZ Transcribed Date/Time: 06/04/20 9:16 am * Exam Date Time Procedure Performing Provider Status 06/03/20 2:52 PM Chest Portable Maddie Henley (Verified) Notes: (Chest Portable) Reason For Exam: S/P Cardiac Surgery RESULT: Chest Portable Chest Portable Reason: S P Cardiac Surgery; Clinical Question(s): Other:; Cardiac Tamponade; Special Instructions:On Admission to [facility] COMPARISON: Priors, most recent dated 06/02/2020 FINDINGS: LINES AND TUBES: Interval placement of an endotracheal tube terminating approximately 3 cm above the fabiano. An enteric tube courses below the diaphragm and off of the image however the sidehole is noted in the region of the body of the stomach. A left atrial appendage clip noted in place. The right IJ approach Ozawkie-Hanna catheter terminates in the region of the main pulmonary outflow tract. Mediastinal drain and left-sided chest tube noted in place. Few EKG leads overlie the chest wall. Epicardial pacing wire noted. Patient is post median sternotomy and CABG. LUNGS AND PLEURA: No focal consolidation. No evidence of pulmonary edema. No pleural effusion. No pneumothorax. HEART, MEDIASTINUM AND AMISHA: Heart is normal in size. Normal upper mediastinal and hilar contour. BONES AND SOFT TISSUES: No acute abnormality. Atherosclerotic calcification of bilateral carotid bulb region noted in the neck. IMPRESSION: No radiographic evidence of acute cardiopulmonary disease. Support apparatus in normal position. WSN: [id number] Ordering Physician: Parish Pang Dictated By: Julia Chapman MD Dictated Date/Time: 06/03/20 2:59 pm Reviewed By: Julia Chapman MD Signed By: Julia Chapman MD Signed Date/Time: 06/03/20 2:59 pm Transcribed By: CHAZ Transcribed Date/Time: 06/03/20 2:55 pm * Exam Date Time Procedure Performing Provider Status 06/02/20 3:19 PM Chest Portable Myra Daniel; Neftaly (Verified) Notes: (Chest Portable) Reason For Exam: Preop RESULT: Chest Portable Chest Portable AP upright at 2:42 PM REASON: Preop; Clinical Question(s): Preop / Preop COMPARISON: 08/06/2018 FINDINGS: LINES AND TUBES: None. LUNGS AND PLEURA: Clear lungs. Normal pulmonary vascularity. No pleural effusion. No pneumothorax. HEART, MEDIASTINUM AND AMISHA: Heart is normal in size. Aorta is mildly calcified. BONES AND SOFT TISSUES: No acute abnormality. IMPRESSION: No evidence of acute abnormality. WSN: [id number] Ordering Physician: Jason Biggs Dictated By: Jose Antonio Mclaughlin MD Dictated Date/Time: 06/02/20 3:33 pm Reviewed By: Jose Antonio Mclaughlin MD Signed By: Jose Antonio Mclaughlin MD Signed Date/Time: 06/02/20 3:33 pm Transcribed By: CHAZ Transcribed Date/Time: 06/02/20 3:33 pm Vital Signs Most recent to oldest [Reference Range]: 1 2 3 Height 157 cm (06/14/20 8:32 AM) 157 cm (06/14/20 7:39 AM) 157 cm (06/14/20 6:18 AM) Weight 42.4 kg (06/14/20 4:00 AM) 42 kg (06/13/20 4:00 AM) 42 kg (06/13/20 3:53 AM) Oxygen Saturation [94-100 %] 100 % (06/14/20 7:39 AM) 99 % (06/14/20 6:18 AM) 97 % (06/14/20 4:00 AM) Pulse Rate [55-90 bpm] 78 bpm (06/14/20 7:39 AM) 80 bpm (06/14/20 6:18 AM) 80 bpm (06/14/20 6:17 AM) Body Mass Index [18.5-24.99] 17.2 *L* (06/14/20 4:00 AM) 17.04 *L* (06/13/20 3:53 AM) 18.01 *L* (06/12/20 8:41 AM) Blood Pressure [90-138/55-84 mm Hg] 123/65mm Hg (06/14/20 8:24 AM) 123/65mm Hg (06/14/20 7:39 AM) 107/76mm Hg (06/14/20 6:18 AM) Respiratory Rate [16-30 br/min] 18 br/min (06/14/20 7:39 AM) 18 br/min (06/14/20 4:00 AM) 18 br/min (06/13/20 11:15 PM) Temperature [96.8-100.4 DegF] 98.1 DegF (06/14/20 7:39 AM) 98.1 DegF (06/14/20 4:00 AM) 99.3 DegF (06/13/20 11:15 PM) Liters per Minute 1 L/min (06/07/20 11:00 PM) 1 L/min (06/07/20 8:28 PM) 1 L/min (06/07/20 4:43 PM) Mode of Delivery (Oxygen) Room air (06/14/20 7:39 AM) Room air (06/14/20 6:18 AM) Room air (06/14/20 4:00 AM) Blood pressure sites Arm, right (06/14/20 7:39 AM) Arm, left (06/14/20 6:18 AM) Arm, left (06/14/20 4:00 AM) Temperature Route Oral (06/14/20 7:39 AM) Oral (06/14/20 4:00 AM) Oral (06/13/20 11:15 PM) Weight Obtained Via Bed scale (06/14/20 4:00 AM) Bed scale (06/13/20 4:00 AM) Bed scale (06/13/20 3:53 AM)
--- OUTSIDE RECORDS SUMMARY | 2023-10-30 07:41 | XMS_ITS | Continuity of Care Document ---
Author Organization [facility] al[facility]ie Address [address] [address]- Care Team Providers Care Grain Mill Products Inspector Name Role Phone Lorne BARKSDALE MD, Chris Laws Primary Care Physician Encounter [facility] Date(s): 06/14/20 - 07/14/20 [facility] Cardiac Surgery [address] [facility] Room [address] [place] [id number] Allergies, Adverse Reactions, Alerts Substance Reaction [...]
--- OUTSIDE RECORDS SUMMARY | 2023-10-30 07:41 | XMS_ITS | Continuity of Care Document ---
Author Organization [facility] Address [address] [place] [address]- Care Team Providers Care Joy Loader Name Role Phone Chris Pradhan III, MD Primary Care Physician Encounter [facility] [place] Date(s): 10/14/20 - 10/21/20 [facility] [address] [place] [address]- Attending Physician: Marino Jenkins MD Admitting Physician: [...] Dry Weight Start Date: 06/23/20 Status: Ordered metoprolol 25 mg oral tablet [...] 10/21/20 10:03:00 EDT, Route to Pharmacy Electronically, [facility] #[id number], Partial fill upon patientrequest if the prescription [...]
--- OUTSIDE RECORDS SUMMARY | 2023-10-30 07:41 | XMS_ITS | Continuity of Care Document ---
Author Organization [facility] Address [address] [place] [address]- Care Team Providers Care Bag Machine Tender Name Role Phone Chris Pradhan III, MD Primary Care Physician Encounter [facility] [place] Date(s): 10/24/20 - 11/23/20 [facility] [address] [place] [address]- Allergies, Adverse Reactions, Alerts Substance Reaction Severity [...] 10/21/20 10:03:00 EDT, Route to Pharmacy Electronically, [facility] #[id number], Partial fill upon patientrequest if the prescription [...]
--- OUTSIDE RECORDS SUMMARY | 2023-10-30 07:41 | XMS_ITS | Continuity of Care Document ---
Author Organization [facility] Address [address] [place] [address]- Care Team Providers Care Ethnographic Materials Conservator Name Role Phone Chris Pradhan III, MD Primary Care Physician Encounter [facility] Date(s): 03/07/22 - 03/14/22 [facility] [address] [place] [address]- Attending Physician: Marino Jenkins MD Admitting Physician: Marino Jenkins MD Referring Physician: Chris Pradhan III, MD Allergies, Adverse Reactions, Alerts No Known Allergies [...] [Reference Range]: 1 2 Height 158 cm (03/07/22 1:26 PM) 158 cm (03/07/22 1:24 PM) Weight 45.35 kg (03/07/22 1:24 PM) Oxygen Saturation [94-100 %] 99 % (03/07/22 1:24 PM) Pulse Rate [55-90 bpm] 65 bpm (03/07/22 1:24 PM) Body Mass Index [18.5-24.99 kg/m2] 18.17 kg/m2 *L* (03/07/22 1:24 PM) Blood Pressure [90-138/55-84 mm Hg] 180/ 72mm Hg *H* (03/07/22 1:26 PM) 162/60mm Hg *H* (03/07/22 1:24 PM) Mode of Delivery (Oxygen) Room air (03/07/22 1:24 PM) Blood pressure sites Arm, right (03/07/22 1:26 PM) Arm, left (03/07/22 1:24 PM) Dry Weight 45.35 kg (03/07/22 1:24 PM) Weight Obtained Via Patient/family state d (03/07/22 1:24 PM) Dry Weight Obtained Via Patient/family s tated (03/07/22 1:24 PM) Note * [place]: PERFORM, SIGN, VERIFY Event Display: Patient Education/Instruction Authored Date: [id number] [facility] *[facility] [address] Clinical Summary Name FRANCISCO MERCER Age 76 Years 1945 PCP Lorne BARKSDALE MD, Chris Laws PCP Visit Date 03/07/2022 13:13:00 Additional Instructions: Scheduled Appointments?? Future Appointments ?No Future Appointments Scheduled Follow-Up Instructions ?? Diagnosis Medications: Please continue your medications until [...] tab(s) Oral Daily at supper. Next Dose: No Longer Take the Following Medications Clopidogrel (Plavix 75 mg oral tablet) 1 tab(s) Oral Daily. Refills: 0. Allergy Info:?? NKA Medications Given This Visit Future Orders ?No future orders Vital Signs Height 158 cm Weight 45.35 kg BMI 18.17 kg/m2 Blood Pressure 180 mm Hg/72 mm Hg Temperature Pulse Rate 65 bpm Respiratory Rate 02 Sat Mode of Delivery 99 %/Room air You can now view a summary of your hospital visit from the comfort of your home through a free online portal called [employer]. [employer] is a website that allows you to securely view your medical information including discharge summary, medications and follow-up visits. ??You can alsosend a secure electronic message to your doctor???s office to request appointments, renew medications or just ask a question. You can enroll at [email or web address] or register during your next office visit. [...] primary care provider, you may find a [facility] provider by calling [facility] Field Agent at [phone]. For information about the plan of care [...] Team Personnel Name: Monse Mcclendon RN Position: [facility] RN Member Role: Primary Care Nurse Name: Chris Pradhan III, MD Position: [facility] Ambulatory (view) Member Role: PCP Address: Address: [address] [place] [address] Name: Carmen Holguin RN Position: S RN Member Role: Primary Care Nurse Name: Chelsi Santos RN Position: [facility] RN Member Role: Primary Care Nurse Care Team Related Persons Name: KARLA MERCER Address: [address] [address]
--- OUTSIDE RECORDS SUMMARY | 2023-10-30 07:41 | XMS_ITS | Continuity of Care Document ---
Author Organization [facility] Address [address] [place] [address]- Care Team Providers Care Assistant Account Manager Name Role Phone Chris Pradhan III, MD Primary Care Physician [phone] Encounter [facility] [place] Date(s): 09/06/20 - 10/06/20 [facility] [address] [place] [address]- Attending Physician: Emely Gipson Admitting Physician: Admtr, [...]
--- OUTSIDE RECORDS SUMMARY | 2023-10-30 07:41 | XMS_ITS | Continuity of Care Document ---
Author Organization [facility] Address [address] [place] [address]- Care Team Providers Care Carbon Plant Grinder Name Role Phone Chris Pradhan III, MD Primary Care Physician [phone] Encounter [facility] Date(s): 02/27/21 - 03/06/21 [facility] [address] [place] [address]- Attending Physician: Marino Jenkins MD Admitting Physician: [...] 10/21/20 10:03:00 EDT, [id number], Partial fill upon patientrequest if the prescription [...] (hypertension)(Confirmed) Active Osteoporosis(Confirmed) Active Takotsubo cardiomyopathy(Confirmed) Active Underweight(Confirmed) Active Vital Signs Most recent to oldest [Reference Range]: 1 Height 158 cm (02/27/21 7:44 AM) Weight 43.1 kg (02/27/21 7:44 AM) Oxygen Saturation [94-100 %] 97 % (02/27/21 7:44 AM) Pulse Rate [55-90 bpm] 74 bpm (02/27/21 7:44 AM) Body Mass Index [18.5-24.99] 17.26 *L* (02/27/21 7:44 AM) Blood Pressure [90-138/55-84 mm Hg] 110/ 58mm Hg (02/27/21 7:44 AM) Mode of Delivery (Oxygen) Room air (02/27/21 7:44 AM) Blood pressure sites Arm, left (02/27/21 7:44 AM) Weight Obtained Via Patient/family state d (02/27/21 7:44 AM)
--- OUTSIDE RECORDS SUMMARY | 2023-10-30 07:41 | XMS_ITS | Continuity of Care Document ---
Author Organization [facility] Address [address] [place] [address]- Care Team Providers Care Pizzamaker Name Role Phone Chris Pradhan III, MD Primary Care Physician [phone] Encounter [facility] [place] Date(s): 11/11/20 - 11/18/20 [facility] [address] [place] [address]- Attending Physician: Marino Jenkins MD Admitting Physician: Marino Jenkins MD Allergies, Adverse Reactions, [...] 10/21/20 10:03:00 EDT, Route to Pharmacy Electronically, [facility] #[id number], Partial fill upon patientrequest if the prescription [...] oldest [Reference Range]: 1 Height 158 cm (11/11/20 2:10 PM) Weight 38.5 kg (11/11/20 2:10 PM) Oxygen Saturation [94-100 %] 98 % (11/11/20 2:10 PM) Pulse Rate [55-90 bpm] 102 bpm *H* (11/11/20 2:10 PM) Body Mass Index [18.5-24.99] 15.42 *L* (11/11/20 2:10 PM) Blood Pressure [90-138/55-84 mm Hg] 90/5 4mm Hg (11/11/20 2:10 PM) Mode of Delivery (Oxygen) Room air (11/11/20 2:10 PM) Blood pressure sites Arm, left (11/11/20 2:10 PM) Weight Obtained Via Patient/family state d (11/11/20 2:10 PM)
--- OUTSIDE RECORDS SUMMARY | 2023-10-30 07:41 | XMS_ITS | Continuity of Care Document ---
Author Organization [facility] ter Address [address] [place] [address]- Care Team Providers Care Sales Representative Uniforms Name Role Phone Chris Pradhan III, MD Primary Care Physician [phone] Encounter [facility] [place] Date(s): 10/27/20 - 11/25/[address] [address]- Attending Physician: Marino Jenkins MD Admitting Physician: [...] 10/21/20 10:03:00 EDT, Route to Pharmacy Electronically, [facility] #[id number], Partial fill upon patientrequest if the prescription [...]
--- OUTSIDE RECORDS SUMMARY | 2023-10-30 07:41 | XMS_ITS | Continuity of Care Document ---
Author Organization [facility] Address [address] [place] [address]- Care Team Providers Care Police Commissioner Name Role Phone Chris Pradhan III, MD Primary Care Physician [phone] Encounter [facility] [place] Date(s): 09/15/20 - 09/22/20 [facility] [address] [place] [address]- Attending Physician: Marino Jenkins MD Admitting Physician: [...]
--- OUTSIDE RECORDS SUMMARY | 2023-10-30 07:41 | XMS_ITS | Continuity of Care Document ---
Author Organization [facility] Address [address] [place] [address]- Care Team Providers Care Final Assembly Worker Name Role Phone Chris Pradhan III, MD Primary Care Physician Encounter [facility] [place] Date(s): 03/07/22 - 04/06/22 [facility] [address] [place] [address]- Attending Physician: Emely Gipson Admitting Physician: Admtr, [...] Takotsubo cardiomyopathy Confirmed Active Underweight Confirmed Active Patient Care team information Care Team Personnel Name: Monse Mcclendon RN Position: [facility] RN Member Role: Primary Care Nurse Name: Chris Pradhan III, MD Position: [facility] Ambulatory (view) Member Role: PCP Address: Address: [address] [place] [address]- Name: Carmen Holguin RN Position: [facility] RN Member Role: Primary Care Nurse Name: Chelsi Santos RN Position: [facility] RN Member Role: Primary Care Nurse Care Team Related Persons Name: KARLA MERCER Address: [address] [address]
--- OUTSIDE RECORDS SUMMARY | 2023-10-30 07:41 | XMS_ITS | Continuity of Care Document ---
Author Organization [facility] Address [address] [place] [address]- Care Team Providers Care Poultry Culler Name Role Phone Lorne BARKSDALE MD, Chris Laws Primary Care Physician Encounter [facility] [place] Date(s): 09/29/20 - 10/29/20 [facility] [address] [place] [address]- Allergies, Adverse Reactions, Alerts Substance Reaction Severity [...] 10/21/20 10:03:00 EDT, Route to Pharmacy Electronically, [facility] #[id number], Partial fill upon patientrequest if the prescription [...]
--- OUTSIDE RECORDS SUMMARY | 2023-10-30 07:41 | XMS_ITS | Continuity of Care Document ---
Author Organization [facility] Address [address] [place] [address]- Care Team Providers Care Minute Clerk Name Role Phone Chris Pradhan III, MD Primary Care Physician Encounter [facility] [place] Date(s): 02/27/21 - 03/29/21 [facility] [address] [place] [address]- Attending Physician: Emely Gipson Admitting Physician: AdmtrEmely Referring Physician: Admtr, Ar8 Allergies, Adverse Reactions, [...] 10/21/20 10:03:00 EDT, Route to Pharmacy Electronically, [facility] #[id number], Partial fill upon patientrequest if the prescription [...]
--- OUTSIDE RECORDS SUMMARY | 2023-10-30 07:41 | XMS_ITS | Continuity of Care Document ---
Author Organization [facility] David alfie Address [address] [address]- Care Team Providers Care Reimbursement Director Name Role Phone Lorne BARKSDALE MD, Chris Laws Primary Care Physician Encounter [facility] Date(s): 06/23/20 - 06/30/20 [facility] Cardiac Surgery [address] [facility] Room [address] [place] [address]- Attending Physician: Jason Biggs MD Referring Physician: Luis Eduardo REED, Elier Emerson Allergies, Adverse Reactions, Alerts Substance Reaction Severity [...] oldest [Reference Range]: 1 Height 157 cm (06/23/20 10:57 AM) Weight 42 kg (06/23/20 10:57 AM) Oxygen Saturation [94-100 %] 99 % (06/23/20 10:57 AM) Pulse Rate [55-90 bpm] 89 bpm (06/23/20 10:57 AM) Body Mass Index [18.5-24.99] 17.04 *L* (06/23/20 10:57 AM) Blood Pressure [90-138/55-84 mm Hg] 114/ 70mm Hg (06/23/20 10:57 AM) Respiratory Rate [16-30 br/min] 18 br/mi n (06/23/20 10:57 AM) Mode of Delivery (Oxygen) Room air (06/23/20 10:57 AM) Blood pressure sites Arm, left (06/23/20 10:57 AM) Weight Obtained Via Patient/family state d (06/23/20 10:57 AM)
--- OUTSIDE RECORDS SUMMARY | 2023-10-30 07:41 | XMS_ITS | Continuity of Care Document ---
Author Organization [facility] Address [address] [place] [address]- Care Team Providers Care Senior Patrol Agent Name Role Phone Chris Pradhan III, MD Primary Care Physician [place] [facility] [place] 10[place]20[place]20 - 11/19/20 [facility] [address] [place] [address]- Allergies, Adverse Reactions, Alerts Substance Reaction Severity [...] 10/21/20 10:03:00 EDT, Route to Pharmacy Electronically, [facility] #[id number], Partial fill upon patientrequest if the prescription [...] recent to oldest [Reference Range]: 1 Height 157.48 cm (10/21/20 9:20 AM)
[2023-10-30] MEDS: Lactated Ringers 1,000 ML 50 ML IVCONT (08:34)
[2023-10-30] MEDS: methocarbamoL 750 MG TABLET PO (08:35)
[2023-10-30] MEDS: Gabapentin 300 MG CAPSULE PO (08:35)
--- NOTE | 2023-10-30 09:15 | P.HPSUR_ITS ---
Pre-Procedural Eval Section A - 24 Hr Update-Section A only Date of Service: 10/30/23 The patient is an INPATIENT: Yes Section B - Complete if H&P > 30 days Chief Complaint: S/[ C5-7 ACDF Details of Present Illness: Cervical myelopathy Allergies: Allergies Allergy/AdvReac Type Severity Reaction Status Date / Time No Known Allergies Allergy Verified 10/30/23 07:55 Review of Systems Sugical H&P ROS: Negative: Constitution, Cardiovascular, Respiratory, Neurological, Psychiatric, Hem-Onc, Allergic/Immunologic, Gastrointestinal, G enitourinary, Musculoskeletal, Integumentary, Endocrine and Eyes/Ears/Nose/Throat Exam Surgical H&P Exam: Normal: HEENT, Normal: Heart, Normal: Lungs, Normal: Extremities, Normal: Abdomen, Normal: Skin and Normal: Neurological (Awake, alert) Plan Diagnosis/Plan: Unchanged I have reviewed the history and physical and performed a pertinent physical examination on my patient. No changes have occurred unless specified. Anterior diskectomy and fusion C5-6 and C6-7 with anterior plating Time Spent With Patient Time: Total time managing care of this patient today ___ 5 _ minutes.
--- NOTE | 2023-10-30 11:58 | W.PM.OPN ---
Operative Note Operative Note Date of Service: 10/30/23 Narrative: Preoperative Diagnosis: Cervical myelopathy Procedure: C5-6, C6-7 Anterior discectomy, arthrodesis and implantation cage ; C5-C7 anterior instrumentation ; local autograft; microscope Informed Consent was obtained for this operation. I have explained the nature, purpose and benefits of the operation. I have discussed the risks and benefit of the operation including possible complications or adverse events with patient/family. Alternative(s) were discussed with the patient with their relative benefits and risks as well as the consequences of not accepting the operation were included in obtaining consent. Surgeon: LAYNE SANDOVAL MD, PHD Procedure Assisted By: MARCIAL Winchester Description of Procedure: This 68-year-old female suffering from progressive cervical myelopathy due to severe spinal cord compression with myelomalacia at C5-6 and C6-7. She was offered an anterior diskectomy and fusion of the levels. The procedure and complications were explained. The patient was consented. The patient was brought to the operating room and endotracheally intubated. The patient was put in supine position with slight extension of the neck. Prep and drape was done followed by timeout. A mid cervical incision was made followed by opening of the platysma. The prevertebral fascia was reached following the natural planes while the physician assistant spa director provided manual retraction. The prevertebral fascia was opened to expose the disc space. A spinal needle was placed in the disk space to confirm the correct level with xray. The longus colli muscles were released bilaterally and a self retaining retractor was inserted. An initial diskectomy was done of the level C5-C6 C7. Two [place] pins were placed in the C5-C6 vertebral bodies and distraction was give over the interspace. The discectomy was completed toward the posterior annulus of the disc. The microscope was brought in. The remainder of the discectomy was completed. A significant hypertrophied posterior ligament was opened and resected to expose the underlying dura. Large compressive Osteophytes were resected from the body of 5 and C6 and saved for autograft. Careful resection of bone spurs was done to decompress the spinal cord. Bilateral foraminotomies were done. The endplates were prepared after which a 6 mm cage filled with autograft was inserted into the disc space. A separate attached plate was locked down with 2 x 14 mm screws as anterior instrumentation. Then attention was turned to the C6-7 disc space. Again a significant degenerative disc was encountered with hypertrophic PLL compressing the spinal cord. Carefully the posterior longitudinal ligament was opened and resected to decompress the underlying dura. Large osteophyte were removed from the body of C6-C7 and from the bilateral foramina. Eventually a good decompression cord and exiting nerve roots was obtained. The endplates were prepared of the which a 6 mm cage filled with autograft was inserted into the disc space. A separate attached plate was locked down with 2 x 14 mm screws as anterior instrumentation. Final x-rays in AP and lateral projection showed a satisfactory position of the implants and anterior instrumentation. The physician assistant spa director took over. The [place] pin was removed. Hemostasis was done. He closed the incision in 2 layers with a 3-0 Vicryl. Steri-Strips used to approximate incision. An OpSite with Tegaderm was used to cover the incision. All sponge and needle counts were correct. Patient was extubated and transported in stable is to recovery room. Anesthesia: General Estimated Blood Loss (ml): 30 mL Duration of Surgery: 90 minutes Postoperative Plan: Discharge home Complications: None
--- NOTE | 2023-10-30 13:17 | PHA.MEDREC ---
Addendum entered by [facility] 10/30/23 13:26: MED REC CHECKED BY [facility] Original Note: Pharmacy Consult ? Medication Reconciliation Pharmacy has reviewed the medication reconciliation done by nursing. Spoke to patient to confirm medications. patient states she is no longer on Estradiol , and vitamin D3. Patient also states she stopped Asprin 81 mg 7 days prior to surgery and Xarelto 20 mg 3 days prior to surgery.
[2023-10-30] MEDS: 0.9 % Sodium Chloride 1,000 ML 75 ML IVCONT (13:29)
[2023-10-30] MEDS: Gabapentin 100 MG CAPSULE PO ×2 (15:04→22:09)
[2023-10-30] MEDS: oxyCODONE HCl Immed Release 5 MG TABLET PO (15:04)
[2023-10-30] MEDS: ceFAZolin Sodium/Dextrose,Iso 2 GM/50 ML PIGGYBACK IV ×2 (16:43→22:15)
[2023-10-30] MEDS: Acetaminophen 1,000 MG/100 ML PIGGYBACK 400 MG IV (17:51)
[2023-10-30] MEDS: Atorvastatin Calcium 40 MG TABLET PO (22:14)
[2023-10-30] MEDS: Metoprolol Succinate ER 50 MG TAB.ER.24H PO (22:14)
[2023-10-30] MEDS: Docusate Sodium 100 MG CAPSULE PO (22:14)
[2023-10-31] MEDS: Acetaminophen 1,000 MG/100 ML PIGGYBACK 400 MG IV ×2 (01:02→09:30)
[2023-10-31 03:31] VITALS: BP 149/66; PULSE 67; RESP 18; TEMP 36; O2SAT 98
[2023-10-31] MEDS: 0.9 % Sodium Chloride 1,000 ML 75 ML IVCONT (04:19)
[2023-10-31] MEDS: ceFAZolin Sodium/Dextrose,Iso 2 GM/50 ML PIGGYBACK IV (04:20)
[2023-10-31] MEDS: ondansetron HCL 4 MG/2 ML VIAL IVPUSH (05:14)
[2023-10-31 07:14] VITALS: BP 164/74; PULSE 62; RESP 16; TEMP 36.4; O2SAT 98
--- NOTE | 2023-10-31 07:34 | HO.POSTANES ---
Post Anesthesia Evaluation Post Anesthesia Evaluation Date of Service: 10/31/23 Vital Signs: Vital Signs Temp Pulse Resp BP Pulse Ox O2 Del Method 10/31/23 07:14 97.5 F 62 16 164/74 H 98 Room Air 10/31/23 03:31 96.8 F 67 18 149/66 H 98 Room Air 10/30/23 19:38 96.8 F 71 16 146/90 H 98 Room Air Anesthesia: General Endotracheal-GETA Mental Status: Awake Pain Control: Satisfactory Nausea/Vomiting: None Hydration: Adequate Anesthesia-Related Issues: No Anes. Related Issues
--- NOTE | 2023-10-31 08:55 | P.DS_ITS ---
DS: Providers Provider Date of Service: 10/31/23 Primary care physician: Chris Pradhan III, MD DS: Summary Time Attestation Discharge Coordination Time (in mins): 15 Quality: Safe Use of Opioids Does Pt have an Active Cancer Diagnosis on the Problem List?: No Quality: Stroke Does the patient have a stroke diagnosis?: No Physical Exam Vital Signs: Vital Signs: Last Vital Signs Temp 97.5 F 10/31/23 07:14 Pulse 62 10/31/23 07:14 Resp 16 10/31/23 07:14 BP 164/74 H 10/31/23 07:14 Pulse Ox 98 10/31/23 07:14 O2 Del Method Room Air 10/31/23 07:14 O2 Flow Rate 6 10/30/23 12:35 BMI result Body Mass Index 18.7 Discharge Plan Discharge Patient Disposition: Home, Self-Care Referrals: Chris Pradhan III, MD [Primary Care Provider] - 1 Week Discharge Medications: New oxycodone 5 mg tablet 5 mg PO Q6H PRN (Reason: severe pain (scale score 7-10)) Qty: 30 0RF Rx Instructions: Partial Fill upon patient request. Continued atorvastatin 40 mg Tablet 40 mg PO BEDTIME metoprolol succinate [Toprol XL] 50 mg Tablet Extended Release 24 Hr 50 mg PO BID amlodipine 5 mg Tablet 5 mg PO DAILY digoxin 125 mcg (0.125 mg) Tablet 125 mcg PO DAILY gabapentin 100 mg Capsule 100 mg PO TID diclofenac sodium 1 % Gel 1 g TOPICAL BID PRN (Reason: Pain) Rx Instructions: apply to single elbow, wrist or hand; for hand includes palm/fingers/back of hand Held aspirin 81 mg Tablet,Chewable 81 mg PO DAILY Hold Instructions: Resume on 11/04/23. Xarelto 20 mg Tablet 20 mg PO DAILY Hold Instructions: Resume on 11/03/23. Rx Instructions: must administer with evening meal Discharge Orders: Discharge Order (Routine); Ordered 10/31/23 Ordered By: J Luis Stephen Diet: Advance to usual diet Activity on Discharge: As tolerated Activity Restrictions/Additional Instructions: After your spinal surgery we ask you to observe the following restrictions/guidelines: Activity: It is normal to feel some discomfort as you increase your activity, but that will improve with time. We ask you avoid heavy lifting or acitivities that cause pain. As a general rule, 8lbs is a safe limit for lifting right after surgery. Walk as much as you feel comfortable but not to exhaustion. You will feel extra tired the first few days after surgery. Stay well hydrated. It is OK to walk up and down stairs You may return to driving when you are off narcotics (such as vicodin, oxycodone, dilaudid, etc), and you are back to normal functional capacity. If you have any concerns please check with office before driving. Return to work is specific to each patient and each surgery, so please speak with your doctor/PA at first follow up. Please bring paperwork such as FMLA at that time if you need it filled out. Medications: YOU MAY RESUME YOUR BLOOD THINNERS FOLLOWS: XARELTO ON 11/03/23; ASPIRIN ON 11/04/23. We recommend you take 1,000mg Tylenol every 8 hours for the first few weeks after surgery, if you do not have any liver issues and can tolerate this medication. Do not exceed 4,000mg daily. We will give you a short supply of narcotics after surgery (usually one weeks worth). If you need more please call the office but do not use more than pr escribed. You will need to give our office 48 hours notice if you need narcotics refilled and we do not fill narcotics on weekends or evenings. If you are on a narcotic, it is a good idea to take a stool softener such as colace or senna to avoid constipation If you take blood thinner such as aspirin, Plavix, Coumadin, Effient, Eliquis etc for conditions such as Afib, DVT, Pulmonary embolus, coronary disease, stents etc please speak with your surgeon about specific details as to when you can resume these medications. You can resume NSAIDs on post op day 1 (eg: Motrin, Naproxen, etc). Follow up: Please call the office, , after surgery to arrange a 3 week follow up for wound check. Wound Care: You may remove your dressing on the first day after surgery. ?You may ?leave open to air. Please do not remove the steri strips underneath. they will fall off on their own in one week. IT IS NORMAL FOR THE WOUND TO OOZE OR BE BLOODY FOR A FEW DAYS AFTER SURGERY. ?IF THIS HAPPENS JUST PLACE NEW DRESSING OVER IT TO AVOID STAINING CLOTHES. You may shower on post op day # 1 We ask that you do not let the water soak the wound. If it does get wet, just towel dry lightly. Please do not scrub your incision or place any type of chemical/ointment on the wound. No tub baths, pools or jacuzzis for one month. If you have any leaking or redness from your wound, or fevers, please call the office. Print Language: Georgian
--- NOTE | 2023-10-31 08:59 | HO.NEURO.PN ---
Neurosurgery Operative Note Date of Service: 10/31/23 Narrative: POD:1 Procedure: C5-7 ACDF Niya is seen this morning sitting upright in bed on [address]. She reports she has been doing very well since the surgery and has minimal pain. She is tolerating her current medication regimen well. She does have some discomfort with swallowing but is still tolerating p.o. intake without issue. She is voiding well and has been up out of bed. She reports no significant concerns, and states she would like to return home. Afebrile, vital signs stable. No new neurological deficits. Full strength 5/5 UE. Anterior dressing has very minimal staining without signs of hematoma. No active sanguineous drainage. Area is dry. Plan: Patient meets criteria to be medically discharged home. I sent in a prescription for oxycodone to the pharmacy here at [facility]. The patient reports he should not have a co-pay with her insurance and they should be able to bring the medication up to her room. She may restart her Xarelto on 11/03/2023, and may restart her aspirin on 11/04/2023. She was evaluated this AM by the attending neurosurgeon Dr. Chao who understands and agrees to this plan. J Luis Chao MD,PhD [facility]
[2023-10-31] MEDS: Metoprolol Succinate ER 50 MG TAB.ER.24H PO (09:31)
[2023-10-31] MEDS: Digoxin 0.125 MG TABLET PO (09:31)
[2023-10-31] MEDS: Gabapentin 100 MG CAPSULE PO (09:31)
[2023-10-31] MEDS: Docusate Sodium 100 MG CAPSULE PO (09:31)
[2023-10-31] MEDS: amLODIPine Besylate 5 MG TABLET PO (09:31)
--- NOTE | 2023-10-31 09:33 | MHC.CM.PN ---
IMM delivered. Patient lives in a home alone. Functionally independent, uses cane/walker PRN. PCP Chris Pradhan MD Pt completed HCP naming her friend, Eusebio as HCA, no alternate. DP: Home self care, friend to transport. [facility] referral to eval for possible services at home.
== END 2023-10-31 12:00 | disposition home or self-care (01) ==
LOC: HO.SSS 07:39 → HO.S3 13:32
PROVIDERS: PCP Internal Medicine; Visit Provider Neurological Surgery
PROC: (CPT 22551; principal; 2023-10-30 11:20)
DX: G95.9 Disease of spinal cord, unspecified (principal); M50.022 Cervical disc disorder at C5-C6 level with myelopathy; M50.023 Cervical disc disorder at C6-C7 level with myelopathy; R26.81 Unsteadiness on feet; I48.91 Unspecified atrial fibrillation; I10 Essential (primary) hypertension; I25.10 Atherosclerotic heart disease of native coronary artery without angina pectoris; J44.9 Chronic obstructive pulmonary disease, unspecified; Z95.1 Presence of aortocoronary bypass graft; Z79.01 Long term (current) use of anticoagulants; Z87.891 Personal history of nicotine dependence; Z79.899 Other long term (current) drug therapy; Z79.82 Long term (current) use of aspirin
CPT/HCPCS: 22551; 22552; 22853; 20936; 22845; C1713; C1889; J0131; J0690; J1100; J2405; J2704; J3010; L8699

== ENCOUNTER → 2023-10-30 07:54 | Outpatient (BNV) | payer MEDICARE, OTHER, SELFPAY | PROVIDERS: Admitting Provider Physician Assistant; PCP Internal Medicine; Visit Provider Neurological Surgery | DX: Z48.89 Encounter for other specified surgical aftercare (principal) | CPT/HCPCS: 20936; 22551; 22552; 22845; 22853; 99024; 99499 ==

== ENCOUNTER 2023-11-21 09:19 | Outpatient (AMB) | payer MEDICARE, OTHER, SELFPAY ==
--- NOTE | 2023-11-21 09:26 | A.SPINEOV_ITS ---
Intake Visit Reasons: 1st post op Intake Note: Ms. Patel is here today for her 1st post-op appointment. Area Loss Prevention Manager Required: No Allergies No Known Allergies Allergy (Verified 10/30/23 07:55) Assessment & Plan Assessment & Plan (1) S/P spinal fusion: Code(s): Z98.1 - Arthrodesis status Category: Surgical Plan Procedure: C5-6, C6-7 ACDF Niya is a pleasant 77-year-old female that comes in today for her 1st postoperative visit. She reports she has been doing very well since the surgery and is very satisfied overall. She only had to take a couple doses of oxycodone a couple Tylenol after surgery. She has otherwise been doing well without any medication. She has had some neck pain but feels it is tolerable. She reports no limitations to her ADLs or difficulties with her strength in the upper extremities. No new neurological deficits. The patient is able to ambulate well and rises from a seated position without difficulty. Her anterior incision site appears closed & well healing. I would like to follow up with Niya again in 6 weeks and get a set of x-rays. J Luis Chao MD,PhD [facility] Coding Level of Care Code Global (50435) Diagnoses S/P spinal fusion Z98.1
== END 2023-11-21 09:35 | disposition home or self-care (01) ==
PROVIDERS: PCP Internal Medicine; Visit Provider Physician Assistant
DX: Z98.1 Arthrodesis status (principal)
CPT/HCPCS: 99024

== ENCOUNTER → 2023-11-21 09:19 | Outpatient (BNVA) | payer MEDICARE, OTHER, SELFPAY | PROVIDERS: PCP Internal Medicine; Visit Provider Physician Assistant | DX: Z98.1 Arthrodesis status (principal) | CPT/HCPCS: 99212 ==

== ENCOUNTER 2024-01-02 08:52 | Outpatient (AMB) | payer MEDICARE, OTHER, SELFPAY ==
--- NOTE | 2024-01-02 09:16 | HO.SPINEOV ---
Intake Visit Reasons: 2nd post op with xrays Intake Note: Ms. Patel is here today for her 2nd post-op with xrays. Public Area Supervisor Required: No Allergies No Known Allergies Allergy (Verified 10/30/23 07:55) Assessment & Plan Assessment & Plan (1) S/P spinal fusion: Code(s): Z98.1 - Arthrodesis status Category: Medical Plan Procedure: Niya comes in today for her 2nd postoperative visit. She is s/p C5-7 ACDF completed for cervical myelopathy. To recap she initially presented to clinic for severe right arm pain going down into her hand as well as balance issues. She reports she is very satisfied with the surgery and feels much better than she did pre-operatively. She denies any shooting pains down her right arm. 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 She only took a couple doses of pain medication after surgery and has not needed pain medications since. The patient reports she is up walking around and completing the majority of her ADLs. No new neurological deficits. Patient is able to ambulate well, rises from a seated position without difficulty. Incision site is closed, well healing, with no signs of drainage. There is no need for continued routine follow up with Niya at this time. She may follow-up on an as-needed basis. J Luis Chao MD,PhD [facility] Orders: Orders XR cervical spine 4V Today Z98.1 - Arthrodesis status Coding Level of Care Code Global (55509) Diagnoses S/P spinal fusion Z98.1 Time Spent (min) 15
== END 2024-01-02 09:50 | disposition home or self-care (01) ==
LOC: HO.HNS 08:52
PROVIDERS: PCP Internal Medicine; Visit Provider Physician Assistant
DX: Z98.1 Arthrodesis status (principal)
CPT/HCPCS: 99024

== ENCOUNTER 2024-01-02 08:52 | Outpatient (REF) | payer MEDICARE, OTHER, SELFPAY ==
--- NOTE | ~2024-01-02 | XR_ITS ---
EXAMINATION: XR CERVICAL SPINE 4 VIEWS CLINICAL INFORMATION: Arthrodesis status Z98.1. COMPARISON: None available TECHNIQUE: 4 views of the cervical spine, inclusive of flexion and extension views, were obtained. FINDINGS: Status post C5-C7 anterior fusion. No pathologic motion with flexion or extension. Diffuse osteopenia. Surgical clips overlie the left neck. Carotid bulb calcifications. The lung apices are clear. XR/XR cervical spine 4V IMPRESSION: Status post C5-C7 anterior fusion. No evidence of complication. Electronically signed by: Kennedy Taylor MD 02/13/2024 09:50 AM EST
== END 2024-01-02 08:53 | disposition home or self-care (01) ==
LOC: HO.HOSX 08:52
PROVIDERS: PCP Internal Medicine; Visit Provider Physician Assistant
DX: Z98.1 Arthrodesis status (principal)
CPT/HCPCS: 72050; 99212